=== PATIENT | male | born 1955 | race Caucasian/White ===

== ENCOUNTER → 2019-02-09 | Outpatient (CLI) | payer MEDICARE, BC | END | disposition home or self-care (01) | LOC: LABWHC1 13:42 | PROVIDERS: ATTEND Physical Medicine & Rehabilitation | DX: N28.9 Disorder of kidney and ureter, unspecified (principal) | CPT/HCPCS: 36415; 82565; 84520 ==

== ENCOUNTER → 2019-04-04 | Day surgery (SDC) | payer BC, MEDICARE | LOC: ORWHC2ENDO 13:09 | PROVIDERS: ATTEND Surgery | DX: Z53.9 Procedure and treatment not carried out, unspecified reason (principal) ==

== ENCOUNTER 2019-04-18 11:07 | Day surgery (SDC) | payer BC, MEDICARE ==
[2019-04-12 09:23] VITALS: BMI 25.7
[2019-04-18] MEDS ORDERED: LACTATED RINGERS 1,000 ML IV SCH (11:13)
[2019-04-18] MEDS ORDERED: LIDOCAINE 1% 20 ML VIAL (10MG/ML) FOR IV START INTRADERMA PRN (11:13)
[2019-04-18 11:21] VITALS: TEMP 98.3
[2019-04-18 11:33] LABS: Glucose,Whole Blood 111 mg/dL (75-99)
[2019-04-18] MEDS ORDERED: PROPOFOL 10 MG/ML 20 ML VIAL IV ONE (12:23)
--- NOTE | 2019-04-18 12:25 | P.GSHP ---
History of Present Illness H&P Date: 04/18/19 Chief Complaint: Screening colonoscopy This is a 64-year-old male who presents today for screening colonoscopy. Patient denies any significant GI complaints. 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, skin sensitive to sun, hx skin cancer, History of Any Multi-Drug Resistant Organisms: None Reported Past Surgical History: Back Surgery, Orthopedic Surgery Additional Past Surgical History / Comment(s): [facility] shoulder surgery, fusion L5- metal rods, hemorrhoids, left elbow-removal of floating bones, steroid injection -last 04/11/19 Past Anesthesia/Blood Transfusion Reactions: Previous Problems w/ Anesthesia Additional Past Anesthesia/Blood Transfusion Reaction / Comment(s): severe constipation/unable to urinate-had to be catheterized post op Smoking Status: Never smoker - Past Family History Mother Family Medical History: No Reported History Medications and Allergies Home Medications Medication Instructions Recorded Confirmed Type ALPRAZolam [Niravam (ODT)] 1 mg PO HS 04/12/19 04/18/19 History Acetaminophen [Tylenol Arthritis] 650 mg PO TID PRN 04/12/19 04/18/19 History Albuterol Sulfate [Proventil Hfa] 2 puff INHALATION BID PRN 04/12/19 04/18/19 History Benazepril HCl [Lotensin] 20 mg PO BID 04/12/19 04/18/19 History Butalb/Acetaminophen/Caffeine 1 cap PO TID PRN 04/12/19 04/18/19 History [Fioricet 50-300-40 mg Capsule] Cyclobenzaprine [Flexeril] 10 mg PO TID PRN 04/12/19 04/18/19 History Hydrochlorothiazide 25 mg PO BID 04/12/19 04/18/19 History Hydrocodone/Acetaminophen [Oketo 1 tab PO TID 04/12/19 04/18/19 History 10-325] Meloxicam [Mobic] 15 mg PO DAILY 04/12/19 04/18/19 History amLODIPine [Norvasc] 10 mg PO BID 04/12/19 04/18/19 History Allergies Allergy/AdvReac Type Severity Reaction Status Date / Time No Known Allergies Allergy Verified 04/18/19 11:21 Surgical - Exam Vital Signs Temp Pulse Resp BP Pulse Ox 98.3 F 98 15 134/80 99 04/18/19 11:21 04/18/19 11:21 04/18/19 11:21 04/18/19 11:21 04/18/19 11:21 - General well developed, well nourished, no distress - Eyes PERRL - ENT normal pinna - Neck no masses - Respiratory normal expansion, normal respiratory effort - Cardiovascular Rhythm: regular - Abdomen Abdomen: soft, non tender Results - Labs Abnormal Lab Results - Last 24 Hours (Table) 04/18/19 Range/Units 11:27 POC Glucose (mg/dL) 111 H (75-99) mg/dL Assessment and Plan Assessment: We'll perform screening colonoscopy.
--- NOTE | 2019-04-18 12:38 | P.OP ---
Date of Procedure: 04/18/19 Preoperative Diagnosis: Screening colonoscopy Postoperative Diagnosis: Mild diverticulosis Procedure(s) Performed: Colonoscopy Anesthesia: MAC Surgeon: Antonio Matos Condition: stable Disposition: PACU Description of Procedure: The patient's placed on the endoscopy table in the lateral position. He received IV sedation. Digital rectal exam was performed which revealed no abnormalities. The possible colonoscope was then placed patient anus passed throughout the entire colon. The ileocecal valve was visualized. The cecum, ascending and transverse colon appeared normal. The descending and sigmoid colon had mild diverticular changes. The scope was then brought back the rectum and this appeared normal. Scope was withdrawn for patient.
[2019-04-18 12:55] VITALS: BP 137/86; PULSE 89; RESP 16
== END 2019-04-18 13:09 | disposition home or self-care (01) ==
LOC: ORWHC2ENDO 11:07
PROVIDERS: ATTEND Surgery
DX: Z12.11 Encounter for screening for malignant neoplasm of colon (principal); K57.90 Diverticulosis of intestine, part unspecified, without perforation or abscess without bleeding; I10 Essential (primary) hypertension; J45.909 Unspecified asthma, uncomplicated; Z85.828 Personal history of other malignant neoplasm of skin; Z98.1 Arthrodesis status; F17.210 Nicotine dependence, cigarettes, uncomplicated; Z79.899 Other long term (current) drug therapy
CPT/HCPCS: G0121; J2704; 45378

== ENCOUNTER → 2019-08-29 | Outpatient (CLI) | payer BC, MEDICARE ==
--- NOTE | 2019-08-30 11:39 | ECHOF ---
Referral Reason:R00.2 Palpitations, I49.3 PVC MEASUREMENTS -------- HEIGHT: 182.9 cm WEIGHT: 83.9 kg BP: RVIDd: 3.6 cm (< 3.3) IVSd: 1.2 cm (0.6 - 1.1) LVIDd: 5.0 cm (3.9 - 5.3) LVPWd: 1.2 cm (0.6 - 1.1) IVSs: 1.5 cm LVIDs: 3.7 cm LVPWs: 1.3 cm LA Diam: 3.8 cm (2.7 - 3.8) LAESV Index (A-L): 25.45 ml/m Ao Diam: 3.0 cm (2.0 - 3.7) AV Cusp: 2.2 cm (1.5 - 2.6) LA Diam: 3.3 cm (2.7 - 3.8) MV EXCURSION: 21.518 mm (> 18.000) MV EF SLOPE: 107 mm/s (70 - 150) EPSS: 0.8 cm MV E Abilio: 0.47 m/s MV DecT: 239 ms MV A Abilio: 0.77 m/s MV E/A Ratio: 0.61 RAP: 5.00 mmHg RVSP: 20.81 mmHg FINDINGS -------- Undetermined rhythm. This was a technically good study. The left ventricular size is normal. There is mild concentric left ventricular hypertrophy. Overa ll left ventricular systolic function is normal with, an EF between 55 - 60 %. The diastolic fillin g pattern is normal for the age of the patient 10.21. The right ventricle is normal in size. The left atrial size is normal. Normal LA size by volume 22+/-6 ml/m2. The right atrial size is normal. Interatrial and interventricular septum intact. There is mild aortic valve sclerosis. There is no evidence of aortic regurgitation. Mild mitral regurgitation is present. Mild tricuspid regurgitation present. Right ventricular systolic pressure is normal at < 35 mmHg. There is no evidence of pulmonary hypertension. There is no pulmonic regurgitation present. The aortic root size is normal. There is no pericardial effusion. CONCLUSIONS -------- 1. Undetermined rhythm. 2. This was a technically good study. 3. The left ventricular size is normal. 4. There is mild concentric left ventricular hypertrophy. 5. The diastolic filling pattern is normal for the age of the patient 10.21 6. The right ventricle is normal in size. 7. The left atrial size is normal. 8. Normal LA size by volume 22+/-6 ml/m2. 9. The right atrial size is normal. 10. Interatrial and interventricular septum intact. 11. There is mild aortic valve sclerosis. 12. Mild mitral regurgitation is present. 13. Mild tricuspid regurgitation present. 14. Right ventricular systolic pressure is normal at < 35 mmHg. 15. There is no evidence of pulmonary hypertension. 16. There is no pulmonic regurgitation present. 17. The aortic root size is normal. 18. There is no pericardial effusion. DOCUMENT CONTROLLER: Ellie Fu RDCS
== END | disposition home or self-care (01) ==
LOC: RADECHMAIN 16:24
PROVIDERS: ATTEND Family Medicine
DX: I08.1 Rheumatic disorders of both mitral and tricuspid valves (principal); R00.2 Palpitations
CPT/HCPCS: 93306

== ENCOUNTER → 2021-11-11 | Outpatient (CLI) | payer MEDICARE, OTHER | END | disposition home or self-care (01) | LOC: LABWHC1 11:38 | PROVIDERS: ATTEND Psychiatry & Neurology Neurology | DX: Z01.812 Encounter for preprocedural laboratory examination (principal); Z20.822 Contact with and (suspected) exposure to COVID-19 | CPT/HCPCS: U0003; C9803 ==